=== PATIENT | female | born 1945 | race Caucasian/White ===

== ENCOUNTER 2018-05-29 15:37 | Emergency (ER) | payer MEDICARE ==
--- NOTE | 2018-05-29 15:46 | Emergency Department Record ---
History of Present Illness - General Chief Complaint: Altered Mental Status Stated Complaint: STROKE Time Seen by Provider: 05/29/18 15:37 Source: Patient, RN notes reviewed - History of Present Illness Initial Comments: patient started to have speech problems about 1.5 hours ago and she could not say what she wanted to say. Able to move arms equally and able to stand on toes equally . Patient denies headache. No chest pain and no history of diabetes Review of Systems Reviewed: No additional complaints except as noted below Constitutional: Reports: As per HPI. Denies: Chills, Fever, Malaise, Night sweats, Weakness, Weight change Eyes: Reports: As per HPI. Denies: Eye discharge, Eye pain, Photophobia, Vision change ENT: Reports: As per HPI. Denies: Congestion, Dental pain, Ear pain, Epistaxis , Hearing loss, Throat pain Respiratory: Reports: As per HPI. Denies: Cough, Dyspnea, Hemoptysis, Stridor, Wheezes Cardiovascular: Reports: As per HPI. Denies: Arrhythmia, Chest pain, Dyspnea on exertion, Edema, Murmurs, Orthopnea, Palpitations, Paroxysmal nocturnal dyspnea, Rheumatic Fever, Syncope Endocrine: Reports: As per HPI. Denies: Fatigue, Heat or cold intolerance, Polydipsia, Polyuria Gastrointestinal: Reports: As per HPI. Denies: Abdominal pain, Constipation, Diarrhea, Hematemesis, Hematochezia, Melena, Nausea, Vomiting Genitourinary: Reports: As per HPI. Denies: Abnormal menses, Discharge, Dyspareunia, Dysuria, Frequency, Hematuria, Incontinence, Retention, Urgency Musculoskeletal: Reports: As per HPI. Denies: Arthralgia, Back pain, Gout, Joint swelling, Myalgia, Neck pain Skin: Reports: As per HPI. Denies: Bruising, Change in color, Change in hair/ nails, Lesions, Pruritus, Rash Neurological: Reports: As per HPI, Confusion, Numbness (right arm and right leg and difficulty saying what she wants to say). Denies: Abnormal gait, Headache, Paresthesias, Seizure, Tingling, Tremors, Vertigo, Weakness Psychiatric: Reports: As per HPI. Denies: Anxiety, Auditory hallucinations, Depression, Homicidal thoughts, Suicidal thoughts, Visual hallucinations Hematological/Lymphatic: Reports: As per HPI. Denies: Anemia, Blood Clots, Easy bleeding, Easy bruising, Swollen glands Physical Exam - General General Appearance: Alert, Oriented x3, Cooperative, No acute distress - Head Head exam: Normal inspection - Eye Eye exam: Normal appearance, PERRL Pupils: Normal accommodation - ENT ENT exam: Normal exam, Mucous membranes moist, Normal external ear exam, Normal orophraynx, TM's normal bilaterally Ear exam: Normal external inspection. negative: External canal tenderness Nasal Exam: Normal inspection. negative: Discharge, Sinus tenderness Mouth exam: Normal external inspection, Tongue normal Teeth exam: Normal inspection. negative: Dental caries Throat exam: Normal inspection. negative: Tonsillar erythema, Tonsillar exudate - Neck Neck exam: Normal inspection, Full ROM. negative: Tenderness - Respiratory Respiratory exam: Normal lung sounds bilaterally. negative: Respiratory distress - Cardiovascular Cardiovascular Exam: Regular rate, Normal rhythm, Normal heart sounds - GI/Abdominal GI/Abdominal exam: Soft, Normal bowel sounds. negative: Tenderness - Rectal Rectal exam: Deferred - exam: Deferred - Extremities Extremities exam: Normal inspection, Full ROM, Normal capillary refill. negative: Tenderness - Back Back exam: Reports: Normal inspection, Full ROM. Denies: Muscle spasm, Rash noted, Tenderness - Neurological Neurological exam: Alert, Normal gait, Reflexes normal, Other (expressive aphasia) - Psychiatric Psychiatric exam: Normal affect, Normal mood - Skin Skin exam: Dry, Intact, Normal color, Warm Course - Reevaluation(s) Reevaluation #1: 05/29/18 16:[address] Preston and Dr Quevedo at [facility] and will transfer to the ED. Doing neuro checks every 15 minutes ,BP every 15 minutes Reevaluation #2: Discussed case with Dr Preston and he wanted the alteplase TPA given bolus of 7 and infusion over one hour 62.7 05/29/18 16:29 Medical Decision Making - Data Complexity MDM Data: Labs Ordered and/or Reviewed (acucheck 93), X-Ray Ordered and/or Reviewed (CT by my read essentially negative ), EKG Ordered and/or Reviewed ( nsr , no acute changes) - Lab Data Result diagrams: 05/29/18 15:45 05/29/18 15:45 Disposition Clinical Impression: Expressive aphasia CVA (cerebral vascular accident) Qualifiers: CVA mechanism: unspecified Qualified Code(s): I63.9 - Cerebral infarction, unspecified Disposition: Acute Care Hospital Transfer Condition: (2) Stable Instructions: Altered Mental Status (ED) Forms: Patient Portal Access Time of Disposition: 16:31 Quality - Quality Measures Quality Measures: N/A - Blood Pressure Screening Does Patient Have Any of the Following: No Blood Pressure Classification: Pre-Hypertensive BP Reading Systolic Measurement: 174 Diastolic Measurement: 88 Screening for High Blood Pressure: < Pre-Hypertensive BP, F/U Documented > [ [id number]] Pre-Hypertensive Follow-up Interventions: Referral to alternative/primary care provider.
[2018-05-29 15:59] LABS: BASO % 0.3 % (0-6); EOS % 0.7 % (0-6); GRAN % 51.8 % (47-80); HEMATOCRIT 40.1 % (35.0-47.0); HEMOGLOBIN 13.6 gm/dl (11.6-16.0); MEAN CELL VOLUME 99.5 fl (81-97); MEAN CORPUSCULAR HEMOGLOBIN 33.7 pg (27-33); MEAN CORPUSCULAR HGB CONC 33.9 g/dl (32-36); MEAN PLATELET VOLUME 10.3 fl (7.4-10.4); MONO % 10.2 % (0-9); PLATELET COUNT 223 K/uL (130-400); RED BLOOD COUNT 4.03 M/uL (3.80-5.40); RED CELL DISTRIBUTION WIDTH 12.8 % (11.5-14.5); WHITE BLOOD COUNT W/O DIFF 7.1 K/uL (4.2-12.2)
[2018-05-29 16:13] LABS: BLOOD UREA NITROGEN 16 mg/dL (8-23); CREATININE 0.8 mg/dL (0.5-0.9); EST GLOMERULAR FILTRATION RATE > 60 mL/min
[2018-05-29 16:15] LABS: GLUCOSE,RANDOM 91 mg/dL (74-109)
[2018-05-29 16:16] LABS: PARTIAL THROMBOPLASTIN TIME 25.3 SECONDS (24.5-39.1)
[2018-05-29 16:18] LABS: ALB/GLOB RATIO 1.3 (1.1-1.8); ALBUMIN 4.5 g/dL (4.0-5.0); ALKALINE PHOSPHATASE 74 U/L (35-104); ALT/SGPT 24 U/L (<33); AST/SGOT 23 U/L (10.0-35.0)
[2018-05-29 16:21] LABS: ACETAMINOPHEN < 5.0 ug/mL (10.0-30.0)
[2018-05-29] MEDS ORDERED: ALTEPLASE 100 MG VIAL IV ONE ×2 (16:25→16:26)
--- NOTE | 2018-05-31 11:34 | CT SCAN REPORT ---
DATE: 05/29/2018 at 1556 hours. EXAM: CT OF THE HEAD WITHOUT CONTRAST. HISTORY: Stroke. TECHNIQUE: Noncontrast images of the brain are obtained. COMPARISON: None. FINDINGS: Brain volume is normal. There is no evidence of hemorrhage, mass effect, midline shift, or acute transcortical infarction. No extra-axial fluid collections are seen. The ventricles and basal cisterns are preserved. There is a small arachnoid cyst near the left temporal tip. IMPRESSION: NO ACUTE INTRACRANIAL PROCESS. Job Number: [id number] [facility]
--- NOTE | 2018-05-31 12:01 | RADIOLOGY REPORT ---
DATE: 05/29/2018 at 1558 hours. EXAM: TWO VIEWS OF THE CHEST. HISTORY: Stroke. TECHNIQUE: Two views of the chest. COMPARISON: None. FINDINGS: The heart is mildly enlarged. The pulmonary vessels are not distended. There is moderate atherosclerotic aortic elongation without aneurysm. No effusions are seen. There is no evidence of lung mass or mediastinal adenopathy. IMPRESSION: CARDIOMEGALY. NO ACUTE PROCESS. Job Number: [id number] [facility]
== END 2018-05-29 16:55 | disposition short-term general hospital (02) ==
LOC: ER 15:37
DX: I63.9 Cerebral infarction, unspecified (principal); R47.01 Aphasia; I10 Essential (primary) hypertension
CPT/HCPCS: 99285 ×2; 96365; 96375; 85025; 85730; 85610; 80053; 36416; 82948; 71046; 70450; 93005; 93010; G0480 ×2; J2997; 80320; 80329